=== PATIENT | male | born 1980 | race Caucasian/White ===

== ENCOUNTER 2020-02-23 14:16 | Outpatient (REF) | payer MEDICAID, SELFPAY | END 2020-02-23 14:17 | disposition home or self-care (01) | LOC: HO.LAB 14:16 | PROVIDERS: Visit Provider Internal Medicine | DX: Z20.828 Contact with and (suspected) exposure to other viral communicable diseases (principal) | CPT/HCPCS: C9803; U0003 ==

== ENCOUNTER 2020-09-17 07:30 | Outpatient (REF) | payer OTHER, SELFPAY ==
--- NOTE | ~2020-09-17 | XR_ITS ---
EXAMINATION: XR CERVICAL SPINE CLINICAL INFORMATION: Cervicalgia. COMPARISON: None. TECHNIQUE: 6 views of the cervical spine, inclusive of flexion and extension views, were obtained. FINDINGS: The vertebral alignment is normal. No intrinsic bony abnormality. The disc heights and neural foramina are well maintained. The endplates and posterior elements are normal. No fracture or subluxation. The surrounding prevertebral soft tissues are unremarkable. There is minimal spurring of the joints of [place] seen at the C4-C5 level bilaterally without significant neural foraminal encroachment. XR/XR cervical spine min 6V IMPRESSION: No significant bony cervical spine abnormality appreciated.
--- NOTE | ~2020-09-17 | XR_ITS ---
EXAMINATION: XR ELBOW, RIGHT CLINICAL INFORMATION: Pain COMPARISON: None TECHNIQUE: AP, lateral, and oblique views of the right elbow. FINDINGS: The bones and soft tissues are normal. No fracture or joint effusion. Alignment is anatomic. Joint spaces are maintained. XR/XR elbow RT 2V IMPRESSION: No fracture.
== END 2020-09-17 07:31 | disposition home or self-care (01) ==
LOC: HO.XRAY 07:30
PROVIDERS: PCP Physician Assistant; Visit Provider Physician Assistant
DX: M54.2 Cervicalgia (principal); M25.521 Pain in right elbow
CPT/HCPCS: 72052; 73070

== ENCOUNTER 2020-10-08 07:38 | Outpatient (REF) | payer OTHER, SELFPAY ==
--- NOTE | ~2020-10-08 | XR_ITS ---
EXAMINATION: XR KNEE, LEFT CLINICAL INFORMATION: Pain COMPARISON: None TECHNIQUE: Four views of the left knee. FINDINGS: Bone alignment is normal. There is a lucency seen in the superior medial patella. 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 Differential would include an old fracture. There is a small osteophyte at the lateral patellofemoral joint. The joint spaces are otherwise normal. There is no joint effusion. XR/XR knee LT 3V IMPRESSION: Probable bipartite patella. Differential would include an old fracture. Small osteophyte at the lateral patellofemoral joint.
== END 2020-10-08 07:39 | disposition home or self-care (01) ==
LOC: HO.XRAY 07:38
PROVIDERS: PCP Physician Assistant; Visit Provider Physician Assistant
DX: M25.562 Pain in left knee (principal)
CPT/HCPCS: 73562

== ENCOUNTER 2020-11-10 09:00 | Outpatient (RCR) | payer OTHER, SELFPAY ==
--- NOTE | 2020-10-08 10:46 | MHC.PT.EP ---
[facility] [place] Office [place] Office [place] Office [address] Dameon Carr [address] [phone] F: [phone] F: [phone] F: [phone] F: [phone] Physical Therapy Plan of Care Date of Evaluation: Date of Surgery: Diagnosis: Cervicaliga Assessment: Aron is a 39 y.o. male referred to PT for cervicalalgia . On PT examination he presents with decreased cervical ROM, decreased periscapular strength B. He presents with postural deviations secondary to muscular imbalances that result in compensatory motions. He would benefit from skilled PT for the aforementioned impairments to improve his tolerance for ADLs and work-related tasks including lifting objects over head, lifting heavy things, cooking, cleaning, and driving. He is very motivated for PT. Frequency and Duration: The patient will be seen 2x week for 4 weeks Short Term Goals: 1. In 2 weeks patient will present with increased cervical ROM in all planes to improve his ability for driving and cooking. 2. In 3 weeks patient will demonstrate correct posture and body mechanics for lifting heavy objects off the floor, measured via the teachback method [employer] Goals: 1. In 3 weeks patient will improve periscapualr strength by 1 MMT to help maintain correct posture while lifting objects over head and cleaning. 2. In 4 weeks patient will be independent with HEP for symptom management at home following d/c. Treatment Plan: Modalities to reduce pain, spasms and effusion. Manual therapy to restore motion and function. Therapeutic exercise to improve strength and flexibility. Neuromuscular re-education for posture and balance. Therapeutic activities to return to functional activities of daily living. Electronically signed by: Shoshana Mckeon PT, DPT Please sign and return to therapist. Thank you for your referral.
--- NOTE | 2020-11-23 17:49 | MHC.PT.DC ---
[facility] [place] Office [place] Office [place] Office [address] Dameon Carr [address] [phone] F: [phone] F: [phone] F: [phone] F: [phone] Physical Therapy Discharge Report Diagnosis: Cervicaliga Date of Surgery: Date of Evaluation: 10/08/20 Date of Discharge: 11/23/20 Treatments to Date: 8 Cancellations to Date: 0 No Shows to Date: 0 Discharge Status: Visit Non-compliance Discharge Summary: The patient has not called to schedule any further appointments in two weeks. He is discharged from this physical therapy plan of care. He was reporting a slight improvement in his pain and was demonstrating improved postural awareness. Electronically signed by: Shoshana Mckeon PT, DPT Please sign and return to therapist. Thank you for your referral.
== END 2020-11-23 17:50 | disposition home or self-care (01) ==
LOC: HO.PT 09:00
PROVIDERS: PCP Physician Assistant; Visit Provider Physician Assistant
DX: M54.2 Cervicalgia (principal)
CPT/HCPCS: 97014; 97110; 97112; 97140; 97161; 97530

== ENCOUNTER 2020-12-22 07:23 | Outpatient (REF) | payer OTHER, SELFPAY ==
--- NOTE | ~2020-12-22 | MR_ITS ---
MR CERVICAL SPINE WITHOUT IV CONTRAST CLINICAL INFORMATION: Cervicalgia. COMPARISON: None available. TECHNIQUE: MRI of the cervical spine was obtained using routine sequences without contrast. FINDINGS: Cervical alignment is normal. The vertebral body heights are maintained. There is mild anterior subluxation of C4 on C5. Modic type I endplate signal changes at C4-C5. There is bone marrow edema within the right C4 and C5 facets that is most likely degenerative or inflammatory. No additional bone marrow edema. No acute fractures. The craniocervical junction is unremarkable. Partially imaged intracranial compartment is unremarkable. No cord signal abnormality accounting for artifact. Cervical arterial flow voids are maintained. No significant extraspinal soft tissue findings. C2-C3: Disc contour is normal. No central canal stenosis and no foraminal stenosis. C3-C4: Disc osteophyte without central canal stenosis. Uncovertebral joint spurring and facet arthropathy result in mild right-sided foraminal encroachment. C4-C5: Advanced right-sided uncovertebral joint spurring and facet arthropathy result in severe right-sided foraminal stenosis. No central canal and no left foraminal stenosis. C5-C6: Posterior disc contour normal. No central canal stenosis and no foraminal stenosis. C6-C7: Uncovertebral joint spurring and facet arthropathy result in mild left-sided foraminal encroachment. No central canal stenosis and no right foraminal stenosis. C7-T1: Uncovertebral joint spurring and facet arthropathy result in mild left-sided foraminal encroachment. No central canal and no right foraminal stenosis. MR/MR cervical spine wo con IMPRESSION: - Multilevel cervical spondylosis, greatest at C4-C5 where advanced right-sided uncovertebral joint hypertrophy and hypertrophic facet arthropathy result in severe right-sided foraminal stenosis with suspected compression of the exiting right C5 nerve root. There Modic type I endplate signal changes posteriorly at C4-C5 and there is marrow edema within the right C4 and C5 facets that is most likely degenerative or inflammatory. - Additional mild spondylitic changes throughout the cervical spine as described.
== END 2020-12-22 07:24 | disposition home or self-care (01) ==
LOC: HO.MRI 07:23
PROVIDERS: PCP Physician Assistant; Visit Provider Physician Assistant
DX: M54.12 Radiculopathy, cervical region (principal); M54.2 Cervicalgia
CPT/HCPCS: 72141

== ENCOUNTER 2021-02-23 09:22 | Outpatient (REF) | payer OTHER, SELFPAY ==
[2021-02-23 10:08] LABS: Hematocrit 42.1 % (42.0-52.0); Hemoglobin 13.7 g/dl (14.0-18.0); Mean Corpuscular HGB Conc 32.5 g/dl (31.0-36.0); Mean Corpuscular Hemoglobin 30.2 pg (27.0-33.0); Mean Corpuscular Volume 92.7 fL (80.0-98.0); Mean Platelet Volume 10.7 fL (9.4-12.4); Platelet Count 237 X10*3/uL (160-400); Red Blood Count 4.54 X10*6/uL (4.60-5.80); Red Cell Distribution Width 12.5 % (11.0-16.0); White Blood Count 5.5 X10*3/uL (4.8-10.8)
[2021-02-23 10:14] LABS: Estimated Average Glucose 114 mg/dL; Hemoglobin A1c % 5.6 %
[2021-02-23 10:37] LABS: Alanine Aminotransferase 35 U/L (0-40); Albumin Level 4.4 g/dL (3.5-5.0); Alkaline Phosphatase 43 U/L (39-117); Anion Gap 10 (12-20); Aspartate Amino Transferase 25 U/L (5-37); Bilirubin Total 1.1 mg/dL (0.0-1.0); Blood Urea Nitrogen 16 mg/dL (9-16); Calcium 9.2 mg/dL (8.4-10.2); Carbon Dioxide 27 mmol/L (22-29); Chloride 106 mmol/L (96-108); Cholesterol 154 mg/dL; Estimated Glomerular Filt Rate > 60; Glucose Fasting 109 mg/dL (60-99); HDL Cholesterol 44 mg/dL; LDL Cholesterol Calculated 97 mg/dl; Potassium 4.5 mmol/L (3.3-5.1); Sodium 138 mmol/L (135-145); Total Protein 6.8 g/dL (6.5-8.0); Triglycerides 68 mg/dL
[2021-02-23 10:59] LABS: TSH reflex Free T4 1.38 uIU/mL (0.32-4.0)
== END 2021-02-23 09:23 | disposition home or self-care (01) ==
LOC: HO.LAB 09:22
PROVIDERS: PCP Physician Assistant; Visit Provider Physician Assistant
DX: Z13.29 Encounter for screening for other suspected endocrine disorder (principal); E78.5 Hyperlipidemia, unspecified; I10 Essential (primary) hypertension
CPT/HCPCS: 36415; 80053; 80061; 83036; 84443; 85027

== ENCOUNTER → 2021-11-21 11:27 | Outpatient (BNVA) | payer SELFPAY | PROVIDERS: PCP Physician Assistant; Visit Provider Physician Assistant Medical | DX: Z02.79 Encounter for issue of other medical certificate (principal) ==

== ENCOUNTER 2022-04-29 12:55 | Outpatient (REF) | payer BC, OTHER, SELFPAY ==
--- NOTE | ~2022-04-29 | XR_ITS ---
EXAMINATION: XR NASAL BONES CLINICAL INFORMATION: Injury. COMPARISON: None TECHNIQUE: 3 views of the nasal bones were obtained. FINDINGS: There are no fractures or dislocations. No bone, joint or soft tissue abnormality is demonstrated. XR/XR nasal bones min 3V IMPRESSION: Unremarkable examination.
== END 2022-04-29 12:56 | disposition home or self-care (01) ==
LOC: HO.HMGCX 12:55
PROVIDERS: PCP Physician Assistant; Visit Provider Nurse Practitioner Acute Care
DX: S09.92XA Unspecified injury of nose, initial encounter (principal)
CPT/HCPCS: 70160

== ENCOUNTER 2023-04-10 07:51 | Outpatient (AMB) | payer OTHER, SELFPAY ==
[2023-04-10 07:56] VITALS: BP 116/62; PULSE 40; O2SAT 98; BMI 27.7
--- NOTE | 2023-04-10 07:56 | MHC.PC.OV ---
Vital Signs 04/10/23 07:56 Height 5 ft 10 in Weight 193 lb BMI 27.7 BP 116/62 Blood Pressure Location Lt brachial Position Sitting Pulse 40 L Pulse Source Pulse Oximeter Pulse Oximetry (%) 98 Oxygen Delivery Method Room Air Intake Visit Reasons: Annual Exam Intake Note: Went to urgent care due to fall on right shoulder. Has a lot of pain and discomfort still. Allergies No Known Allergies Allergy (Verified 04/10/23 07:57) Tobacco use date assessed: 04/10/23 Dental Screening Dental Screen Date: 04/10/23 Did you have a dental visit in the last 12 months?: Yes Did you have a dental problem in the last 6 months where you did not have access to dental care?: No Was dental information given to patient?: Patient has dentist HPI Annual Exam HPI Details Patient is a 42-year-old male here today for routine annual physical. Patient has a past medical history significant lumbar disc disease, cervical spine disc disease, hyperlipidemia continues on statin therapy. Does have a family history of Heart disease. Otherwise Patient is fairly healthy Reports he injured his right shoulder in December of 2022. Was evaluated urgent care and x-rays taking without any significant findings. He reports he gradually felt his shoulder was getting better though recently when bowling and now feeling inflammation and pain/ decreased range of motion in his right shoulder. .. Hyperlipidemia: Most recent labs done at [facility] showing appropriate total cholesterol and LDL. Vaccine: UTD with Tdap, UTD with COVID vaccine, up-to-date with flu vaccine [facility] Surgical History History of microdiscectomy Family History Mother Heart disease Hyperthyroidism Father Diabetes Brother Substance use disorder Heart disease Social History Housing: House Alcohol intake: current Alcohol intake frequency: holidays/special occasions only Alcohol type: beer Patient Tobacco Use Status: Former Tobacco user (smoked in breif[place]. 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 1. Little interest or pleasure in doing things: not at all 2. Feeling down, depressed, or hopeless: not at all 3. Trouble falling or staying asleep, or sleeping too much: not at all 4. Feeling tired or having little energy: not at all 5. Poor appetite or overeating: not at all 6. Feeling bad about yourself - or that you are a failure or have let yourself or your family down: not at all 7. Trouble concentrating on things, such as reading the newspaper or watching television: not at all 8. Moving or speaking so slowly that other people could have noticed. Or the opposite - being so fidgety or restless that you have been moving around a lot more than usual: not at all 9. Thoughts that you would be better off or of hurting yourself in some way: not at all Total score: 0 Depression Screening Interpretation: Negative Depression Screening Done: Yes 50995 - PHQ-9 Billing: Yes Source: Developed by Drs. Gordy Alcantar, Kezia Schmitz, Prateek Chavira and colleagues, with an educational rose from [employer]. Thrive Questionnaire Date Thrive assessed: 04/10/23 I am a: Patient What is your living situation today?: I have a steady place to live Within the past 12 months, did the food you bought not last and you didn't have the money to get more?: Never true Within the past 12 months, did you worry whether your food would run out before you got money to buy more?: Never true Do you have trouble paying for medicines?: No Do you have trouble getting transportation to medical appointments?: No Do you have trouble paying your heating and electricity bill?: No Do you have trouble taking care of your child, family member or friend?: No Do you have trouble with day-to-day activities such as bathing, preparing meals, shopping, managing finances, etc.?: No Are you currently unemployed and looking for a job?: No Are you interested in more education?: No Currently or been in a relationship where the following occur: no concerns reported AUDIT C Alcohol Use Questionnaire (AUDIT-C) 1. How often do you have a drink containing alcohol?: Monthly or less 2. How many drinks containing alcohol do you have on a typical day when you are drinking?: 3 or 4 3. How often do you have six or more drinks on one occasion?: Less than monthly Total Score: 3 AKSHAT-7 AMB Questionnaire AKSHAT-7 Date AKSHAT - 7 assessed: 04/10/23 Feeling nervous, anxious, or on edge: 0 = Not at all Not being able to stop or control worryin = Not at all Worrying too much about different things: 0 = Not at all Trouble relaxin = Not at all Being so restless that it is hard to sit still: 0 = Not at all Becoming easily annoyed or irritable: 0 = Not at all Feeling afraid as if something awful might happen: 0 = Not at all Total AKSHAT-7 score (0-4 normal; 5-9 mild; 10-14 moderate; 15-21 severe): 0 Source: Developed by Drs. Gordy Alcantar, Kezia Schmitz, Prateek Chavira and colleagues, with an educational rose from [employer]. AKSHAT-7 Assessment Billing AKSHAT-7 Assessment Tool: AKSHAT-7 Assessment 25279 Review of Systems Const Denies body aches, Denies chills, Denies excessive sweating, Denies fatigue, Denies fever(s) and Denies headache(s) Eyes Denies blurry vision ENT Denies dysphagia, Denies vertigo, Denies dizziness, Denies headache(s), Denies hearing loss and Denies tinnitus Card Denies chest pain, Denies chest pain with activity, Denies syncope, Denies irregular heart rhythm and Denies dyspnea Resp Denies chest congestion, Denies cough, Denies hemoptysis, Denies dyspnea and Denies wheezing GI Denies abdominal pain, Denies melena, Denies hematochezia, Denies coffee ground emesis, Denies dysphagia, Denies diarrhea, Denies nausea and Denies vomiting Denies difficulty urinating, Denies dysuria, Denies urinary frequency, Denies urinary hesitancy and Denies urinary urgency Musc Denies arthralgias, Denies limited range of motion, Denies muscle cramps and Denies muscle weakness Skin/Breast Denies rash and Denies skin ulcer Neuro Denies Abnormal speech present, Denies confusion, Denies vertigo, Denies dizziness, Denies syncope, Denies headache(s), Denies memory loss and Denies seizure-like activity Psych Denies anxiety, Denies confusion, Denies depression, Denies memory loss, Denies panic attacks and Denies paranoia Endo Denies excessive sweating, Denies fatigue, Denies flushing, Denies polydipsia and Denies polyuria Aller/Immun Denies wheezing Physical exam (Primary Care) Vital Signs: Last Vital Signs Pulse 40 L 04/10/23 07:56 BP 116/62 04/10/23 07:56 Pulse Ox 98 04/10/23 07:56 Oxygen Delivery Method Room Air 04/10/23 07:56 BMI result Body Mass Index 27.7 Tobacco/Smoking Status: Tobacco use Status Tobacco use date assessed 04/10/23 04/10/23 08:03 Patient Tobacco Use Status Former Tobacco user (smoked 04/10/23 08:19 in [facility]. < 1 year.) Tobacco use type Cigarette 04/10/23 08:19 e-Cigarette/Vaping Use Never Used 04/10/23 08:19 PHQ-9: PHQ-9 Score PHQ-9: Total score 0 04/10/23 08:17 Depression Screening Interpretation: Negative Thrive Assessment: Date of Thrive Assessment Date Thrive assessed 04/10/23 04/10/23 08:03 Currently or been in a relationship where the following occur: no concerns reported Const General: cooperative, comfortable, no acute distress, alert and awake; No confusion Orientation/consciousness: oriented to person, oriented to place, patient oriented x3 and No confusion HENMT Head: Yes normocephalic Ears: external ears normal and TM's normal bilaterally Face and sinus: No sinus tenderness Mouth: Normal oral and palatal mucosa present and tongue normal Teeth and gingiva: dentition normal and gingiva normal Throat: Yes posterior oropharynx normal, Yes tonsils normal and Yes uvula midline Eyes Conjunctivae: conjunctivae normal Sclerae: sclerae normal Pupils: Equal, round and reactive pupils present EOM: EOMs intact bilaterally Direct Ophthalmoscopy: No no photophobia Neck Neck: Yes no lymphadenopathy, No tender and Yes no JVD Thyroid: Thyroid normal Carotids: no bruits Chest Chest palpation & inspection: no tenderness Resp Effort & Inspection: normal respiratory effort, no audible wheezes, not labored and no stridor Auscultation: no crackles, no rales, no rhonchi and no wheezes Cardio Jugular venous distension: no JVD Rate: regular rate, not bradycardic and not tachycardic Rhythm: regular rhythm Bruits: no carotid bruits Peripheral pulses: Peripheral pulses 2+ throughout GI Inspection: Yes normal to inspection, No abdominal wall ecchymosis and No visible herniation Palpation (GI): Soft to palpation, nontender, no guarding, not rigid and No hepatosplenomegaly present Auscultation: normoactive bowel sounds General: Yes no CVA tenderness Back/Spine/Pelvis Back: no CVA tenderness and No back tenderness Cervical Spine: cervical ROM normal Thoracic/Lumbar Spine: thoracic and lumbar spine normal to inspection, straight leg raise negative bilaterally, No thoraco-lumbar ROM limited and No lumbar spinal tenderness Skin Lesions: no lesions Rashes: no rashes Wounds: no wounds Neuro General: oriented to person, oriented to place, patient oriented x3, CN's II-XI intact bilaterally and No confusion Cranial nerves: Yes Equal, round and reactive pupils present and Yes Normal accommodation reflex present Cognition (Neuro): normal cognition Speech: No Abnormal speech present Gait exam (Neuro): Normal gait present Motor exam (neuro): 5/5 motor strength present throughout Extrem Other: Right shoulder: Limited range of motion, pain reported with extension and internal rotation. Right upper extremity: full ROM; no cyanosis Left upper extremity: full ROM; no cyanosis Right lower extremity: no edema Left lower extremity: no edema Psych Appearance: grossly normal Mental Status: mental status grossly normal Affect: normal affect Attitude: cooperative Thought process: Normal thought process present Assessment and Plan Assessment & Plan (1) Annual physical exam: Code(s): Z00.00 - Encounter for general adult medical examination without abnormal findings (2) HLD (hyperlipidemia): Code(s): E78.5 - Hyperlipidemia, unspecified Qualifiers: Hyperlipidemia type: mixed hyperlipidemia Qualified Code(s): E78.2 - Mixed hyperlipidemia Plan: Patient's most recent fasting lipid panel showing appropriate total cholesterol 193 and well controlled LDL. Will continue on statin therapy with goal LDL to remain below 130. (3) Tendinopathy of right shoulder: Code(s): M67.911 - Unspecified disorder of synovium and tendon, right shoulder Plan: As per HPI, injured his shoulder December 2022. Has made progress though re-injured his right shoulder while bowling. Reports some decreased range of motion and pain in the anterior aspect of his shoulder. Will likely benefit from physical therapy. Orders: Orders Lipid Panel Today E78.2 - Mixed hyperlipidemia Complete Blood Count no Diff Today E78.2 - Mixed hyperlipidemia Comprehensive [place]. Panel Fast Today E78.2 - Mixed hyperlipidemia PT Evaluation and Treatment Today M67.911 - Unspecified disorder of synovium and tendon, right shoulder Referrals Orthopedics Referral M67.911 - Unspecified disorder of synovium and tendon, right shoulder Medications: Refilled atorvastatin 40 mg PO DAILY 90 days 90 tabs 2RF E78.5 - Hyperlipidemia, unspecified atorvastatin 40 mg PO DAILY 90 days 90 tabs 2RF E78.5 - Hyperlipidemia, unspecified Coding Level of Care Code Est Pt Prev Care 40-64y(93185) Diagnoses Annual physical exam Z00.00 Mixed hyperlipidemia E78.2 Hyperlipidemia type: mixed hyperlipidemia Tendinopathy of right shoulder M67.911 Additional Codes AKSHAT-7 Assessment Billing - AKSHAT-7 Assessment Tool: AKSHAT-7 Assessment 71196 ([id number])
== END 2023-04-10 08:35 | disposition home or self-care (01) ==
PROVIDERS: Visit Provider Physician Assistant
DX: Z00.00 Encounter for general adult medical examination without abnormal findings (principal); M67.911 Unspecified disorder of synovium and tendon, right shoulder; Z82.49 Family history of ischemic heart disease and other diseases of the circulatory system; Z79.899 Other long term (current) drug therapy
CPT/HCPCS: 99396

== ENCOUNTER 2023-04-12 10:26 | Outpatient (AMB) | payer OTHER, SELFPAY ==
--- NOTE | 2023-04-12 10:31 | MHC.OFFVIS ---
Intake Intake Visit Reasons: [employer]PER- Rt shoulder disorder tendon Intake Note: Aron is a 42 yr old male, fell on right shoulder while doing a handstand in December and has been having pain, pain subsided and then went bowling and has been having pain since March. Having issues lifting and has tried to rest his shoulder but he has a 3 yr old at home that he needs to care for. He reports mild weakness when lifting his right hand above shoulder height. He did have an MRI of his cervical spine in December of 2000 which showed foraminal stenosis at level C5-C6. He had an injection given into his neck at that time which gave him fairly good relief. He reports mild to moderate discomfort in his neck as well. Allergies No Known Allergies Allergy (Verified 04/12/23 10:35) Medication List - Last Reconciled 04/12/23 by Brian Kirk MD atorvastatin 40 mg PO DAILY 90 days ibuprofen 400 mg PO Q8H methylprednisolone (Medrol (Js)) PO PER PKG DIR PFSH Surgical History History of microdiscectomy Family History Mother Heart disease Hyperthyroidism Father Diabetes Brother Substance use disorder Heart disease Social History Housing: House Alcohol intake: current Alcohol intake frequency: holidays/special occasions only Alcohol type: beer Patient Tobacco Use Status: Former Tobacco user (smoked in [place]. 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 Cognitive needs: No Hearing needs: No Vision needs: No Physical Exam Const Other: Well-nourished well-developed very friendly male awake alert and oriented x3 in no acute distress Extrem Other: Bilateral upper extremity examination shows good capillary refill, no skin lesions noted, normal sensation light touch Right shoulder examination shows slightly decreased range of motion when compared to his left shoulder, 4+ out of 5 strength with supraspinatus testing, positive impingement signs, no instability Results Reviewed Results Reviewed: X-rays of the patient's right shoulder show moderate acromioclavicular joint narrowing, a type 2 acromion, no acute bony abnormalities Assessment & Plan Assessment & Plan (1) Right shoulder pain: Code(s): M25.511 - Pain in right shoulder Plan Mr. Hannon presents with right shoulder pain most likely due to impingement syndrome and rotator cuff tendinosis. He also has intermittent neck pain due to foraminal stenosis at level C5-C6 based on his MRI in 2020. I had a lengthy discussion with the patient regarding the treatment options. We will hold off on a cortisone injection at this time. I did give the patient a prescription for a Medrol Dosepak. I will see him back in 4-6 weeks time for repeat clinical examination. He will continue with his range of motion exercises in the meantime. Feel free to call me at any time should questions regarding his orthopedic management arise. Thank you very much for asking me to see this very friendly gentleman. I spent 22 minutes in reviewing the patient's records and imaging studies, seeing the patient and documenting in the medical record. Orders: Orders XR shoulder RT min 2V Today M25.511 - Pain in right shoulder Medications: New methylprednisolone (Medrol (Js)) PO PER PKG DIR 21 ea 0RF Coding Level of Care Code New Pt Level 2 (57382) Diagnoses Right shoulder pain M25.511
== END 2023-04-12 11:00 | disposition home or self-care (01) ==
PROVIDERS: PCP Physician Assistant; Visit Provider Orthopaedic Surgery
DX: M25.511 Pain in right shoulder (principal)
CPT/HCPCS: 99202

== ENCOUNTER 2023-04-12 11:18 | Outpatient (REF) | payer OTHER, SELFPAY ==
--- NOTE | ~2023-04-12 | XR_ITS ---
EXAMINATION: XR SHOULDER, RIGHT CLINICAL INFORMATION: Pain in right shoulder. COMPARISON: None available. TECHNIQUE: Two views of the right shoulder. FINDINGS: Acromioclavicular and glenohumeral alignment preserved. No abnormal soft tissue calcification identified adjacent to the humeral head. Minimal hypertrophic change at the acromioclavicular joint. XR/XR shoulder RT min 2V IMPRESSION: Minimal hypertrophic change at the acromioclavicular joint. Correlation with clinical exam recommended to determine further management. If there is concern for fracture or other underlying pathology, MRI could be obtained for further evaluation.
== END 2023-04-12 11:19 | disposition home or self-care (01) ==
LOC: HO.HOSX 11:18
PROVIDERS: Visit Provider Orthopaedic Surgery
DX: M25.511 Pain in right shoulder (principal); M67.911 Unspecified disorder of synovium and tendon, right shoulder; Z79.899 Other long term (current) drug therapy
CPT/HCPCS: 73030

== ENCOUNTER 2023-06-05 10:00 | Outpatient (RCR) | payer OTHER, SELFPAY ==
--- NOTE | 2023-05-01 14:39 | MHC.PT.EP ---
[facility] [place] Office [place] Office [place] Office [address] Dameon Carr [address] [phone] F: [phone] F: [phone] F: [phone] F: [phone] Physical Therapy Plan of Care Date of Evaluation: 05/01/23 Date of Surgery: N/A Diagnosis: Tendinopathy R shoulder Assessment: Pt is a 42yo male who presents to PT with > 4 month h/o R shoulder pain. Pt referred to PT with diagnosis of tendinopathy, XR shows hypertrophic changes at AC joint. Skilled PT indicated to reduce pain and inflammation, improved cervicothoracic posture and scap stability to normalize scapulohumeral rhythm, reduce impingement of AC joint, and help pt return to PLOF. Pt is in agreement with POC and is motivated to participate. Frequency and Duration: The patient will be seen 2x/week, x 4 weeks Short Term Goals: 1. In 2 weeks, patient will be able to stand with neutral cervical and thoracic spine during UE exercises, no V/C's needed. 2. In 2 weeks, pt will report reduced pain R shoulder to <=4/10 during work tasks. 3. In 2 weeks, pt will be I with postural correction ex including chin tucks and thoracic/periscap strengthening phase 1 exercises. Group Home Goals: 1. In 4 weeks, patient will report 0/10 pain when helping his son get in and out of carseat. 2. In 4 weeks, patient will have full IR ROM without compensatory movements. 3. In 4 weeks, patient will demonstrate 5/5 periscap and shoulder strength all planes to ensure good stability of shoulder. Treatment Plan: Modalities to reduce pain, spasms and effusion. Manual therapy to restore motion and function. Therapeutic exercise to improve strength and flexibility. Neuromuscular re-education for posture and balance. Therapeutic activities to return to functional activities of daily living. Electronically signed by: Fatmata Mcfarlane PT, DPT Please sign and return to therapist. Thank you for your referral.
--- NOTE | 2023-11-07 11:49 | MHC.PT.DC ---
[facility] [place] Office [place] Office [place] Office [address] Dameon Carr [address] [phone] F: [phone] F: [phone] F: [phone] F: [phone] Physical Therapy Discharge Report Diagnosis: Tendinopathy R shoulder Date of Surgery: N/A Date of Evaluation: 05/01/23 Date of Discharge: 06/05/23 Treatments to Date: 9 Cancellations to Date: No Shows to Date: Discharge Status: Achieved Goals Improved Function Independent with HEP Discharge Summary: Pt was referred to PT for R shoulder tendinopathy, and participated in 9 treatment sessions. Pt has met all goals in POC. Pt in agreement with D/C on this date. SPADI improved to 14/130, compared to 46/130 on initial eval. Pt with overall improved body mechanics and periscap strength, with good ability to manage symptoms at home with CP, and stretching. Electronically signed by: Fatmata Mcfarlane PT, DPT Please sign and return to therapist. Thank you for your referral.
== END 2023-11-07 11:49 | disposition home or self-care (01) ==
LOC: HO.PT 10:00
PROVIDERS: PCP Physician Assistant; Visit Provider Physician Assistant
DX: M67.911 Unspecified disorder of synovium and tendon, right shoulder (principal)
CPT/HCPCS: 97110; 97140; 97161; 97530

== ENCOUNTER 2023-06-26 08:46 | Outpatient (AMB) | payer SELFPAY ==
[2023-06-26 09:04] VITALS: BMI 27.7
--- NOTE | 2023-06-26 09:04 | MHC.OFFVIS ---
Intake Vital Signs 06/26/23 09:04 Height 5 ft 10 in Weight 193 lb BMI 27.7 Intake Visit Reasons: Right Shoulder follow up Intake Note: Aron is a 42 year old 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 male who presents with Right shoulder pain. Patient reports he did physical therapy and it does feel better. He is still having some clicking and pain when raising his hands over head or throwing a ball with his son. The patient states that he does do quite a bit of overhead lifting at work. Allergies No Known Allergies Allergy (Verified 06/26/23 09:08) Medication List - Last Reconciled 06/26/23 by Brian Kirk MD atorvastatin 40 mg PO DAILY 90 days ibuprofen 400 mg PO Q8H methylprednisolone (Medrol (Js)) PO [facility] History History of microdiscectomy Family History Mother Heart disease Hyperthyroidism Father Diabetes Brother Substance use disorder Heart disease Social History (Updated 06/26/23 @ 09:09 by Aicha Stockton CMA) Housing: House Alcohol intake: current Alcohol intake frequency: holidays/special occasions only Alcohol type: beer Patient Tobacco Use Status: Former Tobacco user (smoked in breifly. 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 Hannon presents for follow-up of his right shoulder pain due to impingement syndrome. I had a lengthy discussion with the patient regarding the treatment options. At this point the patient's symptoms are tolerable to him. We will hold off on a cortisone injection or an MRI. He will continue with his activity modifications. He will follow up with me on an as-needed basis should his symptoms worsen in any way. Feel free to call me at any time should questions regarding his orthopedic management arise. I spent 19 minutes in reviewing the patient's records and imaging studies, seeing the patient and documenting in the medical record. Coding Level of Care Code Est Pt Level 2 (68514) Diagnoses Impingement of right shoulder M25.811
== END 2023-06-26 09:24 | disposition home or self-care (01) ==
PROVIDERS: PCP Physician Assistant; Visit Provider Orthopaedic Surgery
DX: M25.811 Other specified joint disorders, right shoulder (principal)
CPT/HCPCS: 99212

== ENCOUNTER → 2023-06-26 08:46 | Outpatient (BNVA) | payer OTHER, SELFPAY | PROVIDERS: PCP Physician Assistant; Visit Provider Orthopaedic Surgery | DX: M25.511 Pain in right shoulder (principal); M25.811 Other specified joint disorders, right shoulder | CPT/HCPCS: 99212 ==

== ENCOUNTER → 2023-11-22 07:32 | Outpatient (BNVA) | payer SELFPAY | PROVIDERS: PCP Physician Assistant; Visit Provider Physician Assistant Medical | DX: Z02.79 Encounter for issue of other medical certificate (principal) ==

== ENCOUNTER 2024-04-14 08:03 | Outpatient (AMB) | payer BC, SELFPAY ==
--- NOTE | 2024-04-14 08:09 | A.OFFPC_ITS ---
Vital Signs 04/14/24 08:15 Height 5 ft 10 in Weight 201 lb BMI 28.8 BP 110/62 Blood Pressure Location Lt brachial Position Sitting Pulse 49 L Pulse Source Pulse Oximeter Pulse Oximetry (%) 98 Oxygen Delivery Method Room Air Intake Visit Reasons: Annual Exam Allergies No Known Allergies Allergy (Verified 04/14/24 08:22) Medication List - Last Reconciled 04/14/24 by Lio Price PA-C atorvastatin 40 mg PO DAILY 90 days ibuprofen 400 mg PO Q8H Tobacco use date assessed: 04/10/23 Dental Screening Dental Screen Date: 04/10/23 HPI Annual Exam HPI Details Patient is a 43-year-old male here today for routine annual physical. Patient has a past medical history significant lumbar disc disease, cervical spine disc disease, hyperlipidemia continues on statin therapy. Does have a family history of Heart disease. Otherwise Patient is fairly healthy .. Concerns--> he reports some concerned about his bradycardia. He did call in in January of 2023 about having low heart rates in the 40s during sleep. Does have a seemingly asymptomatic course or bradycardia. Has upcoming appointment in May with Cardiology. Again otherwise he is asymptomatic without any dizziness, presyncopal episodes or fatigue. .. Hyperlipidemia: Most recent labs done at [facility] showing borderline high cholesterol and LDL. Vaccine: UTD with Tdap, UTD with COVID vaccine, Need flu vaccine [facility] Medical History (Updated 04/15/24 @ 08:18 by Lio Price PA-C) Impingement of right shoulder Cervical radiculopathy at C5 Surgical History History of microdiscectomy Family History (Updated 04/15/24 @ 08:15 by Lio Price PA-C) Mother Heart disease Hyperthyroidism Father Diabetes Coronary artery disease involving coronary bypass graft Brother Substance use disorder Heart disease Social History Housing: House Alcohol intake: current Alcohol intake frequency: holidays/special occasions only Alcohol type: beer Patient Tobacco Use Status: Former Tobacco user Tobacco use type: Cigarette e-Cigarette/Vaping Use: Never Used Second Hand Smoke Exposure: No Current occupational status: employed 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 1. Little interest or pleasure in doing things: not at all 2. Feeling down, depressed, or hopeless: not at all 3. Trouble falling or staying asleep, or sleeping too much: not at all 4. Feeling tired or having little energy: not at all 5. Poor appetite or overeating: not at all 6. Feeling bad about yourself - or that you are a failure or have let yourself o r your family down: not at all 7. Trouble concentrating on things, such as reading the newspaper or watching television: not at all 8. Moving or speaking so slowly that other people could have noticed. Or the opposite - being so fidgety or restless that you have been moving around a lot more than usual: not at all 9. Thoughts that you would be better off or of hurting yourself in some way: not at all Total score: 0 Depression Screening Interpretation: Negative Depression Screening Done: Yes 90012 - PHQ-9 Billing: Yes Source: Developed by Drs. Gordy Alcantar, Kezia Schmitz, Prateek roberts nd colleagues, with an educational rose from [employer].. Thrive Questionnaire Date Thrive assessed: 04/14/24 I am a: Patient What is your living situation today?: I have a steady place to live Within the past 12 months, did the food you bought not last and you didn't have the money to get more?: Never true Within the past 12 months, did you worry whether your food would run out before you got money to buy more?: Never true Do you have trouble paying for medicines?: No Do you have trouble getting transportation to medical appointments?: No Do you have trouble paying your heating and electricity bill?: No Do you have trouble taking care of your child, family member or friend?: No Do you have trouble with day-to-day activities such as bathing, preparing meals, shopping, managing finances, etc.?: No Are you currently unemployed and looking for a job?: No Are you interested in more education?: No Please select the resources that you would like help with: None Currently or been in a relationship where the following occur: No concerns reported THRIVE Score: 0 AUDIT C Alcohol Use Questionnaire (AUDIT-C) 1. How often do you have a drink containing alcohol?: Monthly or less 2. How many drinks containing alcohol do you have on a typical day when you are drinking?: 3 or 4 3. How often do you have six or more drinks on one occasion?: Less than monthly Total Score: 3 AKSHAT-7 AMB Questionnaire AKSHAT-7 Date AKSHAT - 7 assessed: 04/14/24 Feeling nervous, anxious, or on edge: 2 = More than half the days Not being able to stop or control worryin = Several days Worrying too much about different things: 1 = Several days Trouble relaxin = Several days Being so restless that it is hard to sit still: 0 = Not at all Becoming easily annoyed or irritable: 0 = Not at all Feeling afraid as if something awful might happen: 0 = Not at all Total AKSHAT-7 score (0-4 normal; 5-9 mild; 10-14 moderate; 15-21 severe): 5 Source: Developed by Drs. Gordy Alcantar, Kezia Schmitz, Prateek Chavira and colleagues, with an educational rose from [employer].. AKSHAT-7 Assessment Billing AKSHAT-7 Assessment Tool: AKSHAT-7 Assessment 59844 Review of Systems Const Denies body aches, Denies chills, Denies excessive sweating, Denies fatigue, Denies fever(s) and Denies headache(s) Eyes Denies blurry vision ENT Denies dysphagia, Denies vertigo, Denies dizziness, Denies headache(s), Denies hearing loss and Denies tinnitus Card Denies chest pain, Denies chest pain with activity, Denies syncope, Denies irregular heart rhythm and Denies dyspnea Resp Denies chest congestion, Denies cough, Denies hemoptysis, Denies dyspnea and Denies wheezing GI Denies abdominal pain, Denies melena, Denies hematochezia, Denies coffee ground emesis, Denies dysphagia, Denies diarrhea, Denies nausea and Denies vomiting Denies difficulty urinating, Denies dysuria, Denies urinary frequency, Denies urinary hesitancy and Denies urinary urgency Musc Denies arthralgias, Denies limited range of motion, Denies muscle cramps and Denies muscle weakness Skin/Breast Denies rash and Denies skin ulcer Neuro Denies Abnormal speech present, Denies confusion, Denies vertigo, Denies dizziness, Denies syncope, Denies headache(s), Denies memory loss and Denies seizure-like activity Psych Denies anxiety, Denies confusion, Denies depression, Denies memory loss, Denies panic attacks and Denies paranoia Endo Denies excessive sweating, Denies fatigue, Denies flushing, Denies polydipsia and Denies polyuria Aller/Immun Denies wheezing Physical exam (Primary Care) Vital Signs: Last Vital Signs Pulse 49 L 04/14/24 08:15 BP 110/62 04/14/24 08:15 Pulse Ox 98 04/14/24 08:15 Oxygen Delivery Method Room Air 04/14/24 08:15 BMI result Body Mass Index 28.8 Tobacco/Smoking Status: Tobacco use Status Tobacco use date assessed 04/10/23 04/14/24 08:10 Patient Tobacco Use Status Former Tobacco user 04/14/24 08:10 Tobacco use type Cigarette 04/14/24 08:10 e-Cigarette/Vaping Use Never Used 04/14/24 08:10 PHQ-9: PHQ-9 Score PHQ-9: Total score 0 04/14/24 08:43 Depression Screening Interpretation: Negative Thrive Assessment: Date of Thrive Assessment Date Thrive assessed 04/14/24 04/14/24 08:19 Currently or been in a relationship where the following occur: No concerns reported Const General: cooperative, comfortable, no acute distress, alert and awake; No confusion Orientation/consciousness: oriented to person, oriented to place, patient oriented x3 and No confusion HENMT Head: Yes normocephalic Ears: external ears normal and TM's normal bilaterally Face and sinus: No sinus tenderness Mouth: Normal oral and palatal mucosa present and tongue normal Teeth and gingiva: dentition normal and gingiva normal Throat: Yes posterior oropharynx normal, Yes tonsils normal and Yes uvula midline Eyes Conjunctivae: conjunctivae normal Sclerae: sclerae normal Pupils: Equal, round and reactive pupils present EOM: EOMs intact bilaterally Direct Ophthalmoscopy: No no photophobia Neck Neck: Yes no lymphadenopathy, No tender and Yes no JVD Thyroid: Thyroid normal Carotids: no bruits Chest Chest palpation & inspection: no tenderness Resp Effort & Inspection: normal respiratory effort, no audible wheezes, not labored and no stridor Auscultation: no crackles, no rales, no rhonchi and no wheezes Cardio Jugular venous distension: no JVD Rate: regular rate, not bradycardic and not tachycardic Rhythm: regular rhythm Bruits: no carotid bruits Peripheral pulses: Peripheral pulses 2+ throughout GI Inspection: Yes normal to inspection, No abdominal wall ecchymosis and No visible herniation Palpation (GI): Soft to palpation, nontender, no guarding, not rigid and No hepatosplenomegaly present Auscultation: normoactive bowel sounds General: Yes no CVA tenderness Back/Spine/Pelvis Back: no CVA tenderness and No back tenderness Cervical Spine: cervical ROM normal Thoracic/Lumbar Spine: thoracic and lumbar spine normal to inspection, straight leg raise negative bilaterally, No thoraco-lumbar ROM limited and No lumbar spinal tenderness Skin Lesions: no lesions Rashes: no rashes Wounds: no wounds Neuro General: oriented to person, oriented to place, patient oriented x3, CN's II-XI intact bilaterally and No confusion Cranial nerves: Yes Equal, round and reactive pupils present and Yes Normal accommodation reflex present Cognition (Neuro): normal cognition Speech: No Abnormal speech present Gait exam (Neuro): Normal gait present Motor exam (neuro): 5/5 motor strength present throughout Extrem Right upper extremity: full ROM; no cyanosis Left upper extremity: full ROM; no cyanosis Right lower extremity: no edema Left lower extremity: no edema Psych Appearance: grossly normal Mental Status: mental status grossly normal Affect: normal affect Attitude: cooperative Thought process: Normal thought process present Office Procedures Flu Questionnaire Does the patient have a severe egg allergy?: No Does the patient have severe life threatening allergies?: No Does the patient have a fever or illness today?: No Has the patient ever had Guillain-[place] Syndrome?: No Has the patient ever had any past reaction to a flu shot?: No Immunizations Fluarix Triv [id number] (PF) 45 mcg (15 mcg x 3)/0.5 mL IM syringe Performing Provider: Lio Price PA-C Performing Location: [facility] Administered by: ROSALBA Brambila on 04/14/24 08:43 Dose Route Admin Location Dispensed Lot Number Expiration Date [employer] Maintainer 0.5 mL IM Left Deltoid 0.5 mL [id number] 10/06/24 [id number] [employer] VIS Given Date VIS Provided VIS Publication Date 04/14/24 Single Vaccine 20 Eligibility Eligibility Date Funding Source Not VFC Eligible 04/14/24 Private Coding Level of Care Code Est Pt Prev Care 40-64y(85578) Diagnoses Annual physical exam Z00.00 Mixed hyperlipidemia E78.2 Hyperlipidemia type: mixed hyperlipidemia Screening for diabetes mellitus (DM) Z13.1 Bradycardia R00.1 AKSHAT (generalized anxiety disorder) F41.1 Additional Codes PHQ-9 - 00772 - PHQ-9 Billing: Yes ([id number]) AKSHAT-7 Assessment Billing - AKSHAT-7 Assessment Tool: AKSHAT-7 Assessment 71039 ([id number]) Assessment & Plan Assessment & Plan (1) Annual physical exam: Code(s): Z00.00 - Encounter for general adult medical examination without abnormal findings Category: Medical Plan: As per HPI (2) HLD (hyperlipidemia): Code(s): E78.5 - Hyperlipidemia, unspecified Category: Medical Qualifiers: Hyperlipidemia type: mixed hyperlipidemia Qualified Code(s): E78.2 - Mixed hyperlipidemia Plan: Most recent lipid panel showing borderline high cholesterol and LDL. He does admit during that time he was in consistent with the use of his statin therapy. Will recheck lipid panel with more consistent use of a statin therapy. Goal LDL to be below 130. Of note does have family history of coronary artery disease (3) Screening for diabetes mellitus (DM): Code(s): Z13.1 - Encounter for screening for diabetes mellitus Category: Medical Plan: As per HPI (4) Bradycardia: Code(s): R00.1 - Bradycardia, unspecified Category: Medical Plan: As per HPI, patient will be following up with a ferryboat ticket taker about his bradycardia. He is otherwise asymptomatic (5) AKSHAT (generalized anxiety disorder): Code(s): F41.1 - Generalized anxiety disorder Category: Medical Plan: Patient's AKSHAT-7 score positive for mild anxiety which has been existing condition for him. Not interested in speaking with a mental health therapist or starting medication at this time. Orders: Orders Comprehensive [place]. Panel Fast 04/14/24 E78.2 - Mixed hyperlipidemia Influenza [id number] Immunization 04/14/24 Z23 - Encounter for immunization Lipid Panel 04/14/24 E78.2 - Mixed hyperlipidemia Complete Blood Count no Diff 04/14/24 E78.2 - Mixed hyperlipidemia
[2024-04-14 08:15] VITALS: BP 110/62; PULSE 49; O2SAT 98; BMI 28.8
== END 2024-04-14 08:47 | disposition home or self-care (01) ==
PROVIDERS: PCP Physician Assistant; Visit Provider Physician Assistant
DX: Z00.00 Encounter for general adult medical examination without abnormal findings (principal); E78.2 Mixed hyperlipidemia; Z13.1 Encounter for screening for diabetes mellitus; R00.1 Bradycardia, unspecified; F41.1 Generalized anxiety disorder

== ENCOUNTER → 2024-04-14 08:03 | Outpatient (BNVA) | payer BC, SELFPAY | PROVIDERS: PCP Physician Assistant; Visit Provider Physician Assistant | DX: Z00.00 Encounter for general adult medical examination without abnormal findings (principal); Z23 Encounter for immunization; E78.2 Mixed hyperlipidemia; R00.1 Bradycardia, unspecified; F41.1 Generalized anxiety disorder | CPT/HCPCS: 90471; 90656; 96127 ==

== ENCOUNTER → 2024-05-19 07:53 | Outpatient (REF) | payer BC, SELFPAY | LOC: HO.CARD 07:53 | PROVIDERS: PCP Physician Assistant; Visit Provider Physician Assistant | DX: R00.1 Bradycardia, unspecified (principal); R07.89 Other chest pain | CPT/HCPCS: 93005; 93306 ==

== ENCOUNTER → 2024-05-19 07:56 | Outpatient (BNV) | payer BC, SELFPAY | PROVIDERS: PCP Physician Assistant; Visit Provider Internal Medicine Cardiovascular Disease | DX: R94.31 Abnormal electrocardiogram [ECG] [EKG] (principal) | CPT/HCPCS: 93306; 93356 ==

== ENCOUNTER 2024-08-05 08:27 | Outpatient (AMB) | payer BC, OTHER, SELFPAY ==
--- NOTE | 2024-08-05 08:30 | A.OFFVIS_ITS ---
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 He reports a low heart rate detected by his watch, especially during sleep. He is generally asymptomatic. His primary concern stems from the sudden cardiac of his 27-year-old brother and his father?s history of congestive heart failure and bypass surgery. Of note, brother also had unhealthy lifestyle including substance abuse and hence that might be the reason for his event. The patient previously experienced chest discomfort lasting several weeks, which was initially considered acid reflux. He has since not experienced any significant chest pain during exertion. Previous echocardiography confirms possible left atrial enlargement consistent with his athletic lifestyle, where no significant pathological abnormalities were noted. Exercise The patient engages in regular running, participating in events such as 10K races once or twice a year. He maintains a consistent exercise regimen, which explains his low resting heart rate as a result of his athletic condition. [facility] Medical History (Updated 05/28/24 @ 10:32 by Lio Price PA-C) Impingement of right shoulder Cervical radiculopathy at C5 Surgical History History of microdiscectomy Family History Mother Heart disease Hyperthyroidism Father Diabetes Coronary artery disease involving coronary bypass graft Brother Substance use disorder Heart disease Social History Housing: House Alcohol intake: current Alcohol intake frequency: holidays/special occasions only Alcohol type: beer Patient Tobacco Use Status: Former Tobacco user Tobacco use type: Cigarette e-Cigarette/Vaping Use: Never Used Second Hand Smoke Exposure: No Current occupational status: employed 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 , 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 Cognitive needs: No Hearing needs: No Vision needs: No Review of Systems Const Denies chills, Denies fatigue, Denies fever(s), Denies frequent falls, Denies weakness, Denies weight gain and Denies weight loss ENT Denies dizziness Card Denies chest pain, Denies leg edema, Denies lightheadedness, Denies palpitations, Denies dyspnea, Denies dyspnea on exertion and Denies orthopnea Resp Denies cough, Denies dyspnea and Denies dyspnea on exertion GI Denies bloating and Denies change in bowel habits Musc Denies muscle weakness, Denies numbness and Denies tingling Neuro Denies dizziness, Denies frequent falls, Denies numbness, Denies tingling and Denies weakness Endo Denies fatigue and Denies palpitations Physical Exam Vital Signs: Last Vital Signs Pulse 42 L 08/05/24 08:33 BP 120/62 08/05/24 08:33 BMI result Body Mass Index 27.7 Const General: comfortable and no acute distress Orientation/consciousness: patient oriented x3 HEENT Other: Unremarkable Head: Yes normal to inspection Neck Neck: Yes normal visual inspection Chest Chest palpation & inspection: normal inspection of the chest Resp Auscultation: clear to auscultation bilaterally Cardio Palpation: normal PMI Heart sounds: S1 normal heart sound present, S2 normal heart sound present, no gallops, no murmurs and no rubs GI Palpation (GI): Soft to palpation Back/Spine/Pelvis Other: unremarkable Skin General skin exam: no rashes or lesions noted Neuro General: patient oriented x3 Extrem General: Yes normal to inspection Psych Mental Status: mental status grossly normal Office Procedures EKG Details: EKG with sinus bradycardia at 42/Min; sinus arrhythmias; no significant ST-T changes; [place] [address]-[id number], Complete Assessment & Plan Assessment & Plan (1) Bradycardia: Code(s): R00.1 - Bradycardia, unspecified Category: Medical (2) Family history of heart disease: Code(s): Z82.49 - Family history of ischemic heart disease and other diseases of the circulatory system Category: Medical (3) Chest discomfort: Code(s): R07.89 - Other chest pain Category: Medical Plan Given the bradycardia and family history of heart disease, further evaluation is necessary. The low heart rate is likely due to the patient's athletic condition, yet due to familial risk, a Cardiac CT scan is advised to assess for coronary blockages. The echocardiogram findings show normal function, with mild chamber enlargement associated with athletic adaptation. Consent for additional testing has been obtained, ensuring thorough evaluation while the patient continues beneficial regular exercise. Discussion Notes I explained to the patient the rationale for additional diagnostic testing, specifically a Cardiac CT scan, due to his bradycardia, history of chest discomfort and substantial family history of heart disease. We discussed the benefits of evaluating possible coronary artery disease, given his father's recent cardiac surgery, contrasted with the risk of procedure. The patient was informed about the normal echocardiogram findings that align with his athletic activity, reassuring him that the mild chamber enlargement is typical in such cases. No immediate interventions were deemed necessary except for continued exercise, which supports his cardiovascular health. Consent for the planned cardiac testing was obtained, and the patient was agreeable to the recommendations given his concerns. Patient was informed and verbally consented to the use of an ambient scribe for clinic note documentation during this visit. Orders: Orders CT Cardiac Coronary Angio Today I25.10 - Atherosclerotic heart disease of [place] coronary artery without angina pectoris, R07.89 - Other chest pain Basic Metabolic Panel Today R00.1 - Bradycardia, unspecified, R07.89 - Other chest pain Patient Instructions: - Continue with regular exercise, such as running, as it supports heart health. - Monitor heart rate as necessary, and report any new symptoms to the physician. - Undergo the scheduled Cardiac CT scan as arranged. - Follow up with the results of the scan for further assessment. - Maintain a healthy lifestyle and diet to support heart health. - Seek medical attention if experiencing significant chest pain or discomfort. - Stay informed about family health history and discuss any significant changes with your healthcare provider. Coding Level of Care Code New Pt Level 4 (48635) Complex EM visit Add On G2211 Diagnoses Bradycardia R00.1 Family history of heart disease Z82.49 Chest discomfort R07.89 CPT Codes EKG - CPT: 31684-[id number], Complete ([id number])
[2024-08-05 08:33] VITALS: BP 120/62; PULSE 42; BMI 27.7
== END 2024-08-05 09:02 | disposition home or self-care (01) ==
PROVIDERS: PCP Physician Assistant; Visit Provider Internal Medicine
DX: R00.1 Bradycardia, unspecified (principal); Z82.49 Family history of ischemic heart disease and other diseases of the circulatory system; R07.89 Other chest pain
CPT/HCPCS: 93010; 99204

== ENCOUNTER → 2024-08-05 08:27 | Outpatient (BNVA) | payer BC, SELFPAY | PROVIDERS: PCP Physician Assistant; Visit Provider Internal Medicine | DX: R00.1 Bradycardia, unspecified (principal); R07.89 Other chest pain; Z82.49 Family history of ischemic heart disease and other diseases of the circulatory system | CPT/HCPCS: 93005 ==

== ENCOUNTER 2024-11-10 11:41 | Outpatient (REF) | payer OTHER, SELFPAY ==
--- OUTSIDE RECORDS SUMMARY | 2024-11-10 12:28 | XMS_ITS | Clinical Summary ---
Author Organization [facility] Address [address] [place] [id number] Phone Care Team Providers Care Mail Carrier Technician Name Role Phone Lio Price Primary Care Provider + Allergies No known active allergies Medications atorvastatin (LIPITOR) 40 MG tablet 3 Active clobetasol (TEMOVATE) 0.05 % cream Apply 1 Application topically 2 (two) times a day. 45 g 4 Active Active Problems No known active problems Immunizations Immunization Administration Dates Next Due DTP 12/09/1985, 3,05/26/1981,1980,02/03/1981 Influenza Quadrivalent Prese rvative Free IM 02/22/2023,04/04/2022,03/01/2021,2019 MMR 10/07/1993,02/16/1982 Tdap 02/05/2020 Social History Tobacco Use Types Packs/Day Years Used Date Smoking Tobacco: Never Smokeless Tobacco: Never Tobacco Cessation:Counseling Given: Not Answered Education Answer Date Recorded Are you interested in more education? Not on christy e 12/12/2022 Are you concerned about learning? Not on file 12/12/2022 No 12/12/2022 No 12/12/2022 Digital Access Answer Date Recorded No 12/12/2022 No 12/12/2022 Reliable internet access at home? Not on file 12/12/2022 Device with a working camera? Not on file Sex and Gender Information Value Date Recorded Sex Assigned at Not on file Legal Sex Male 9:21 PM EDT Gender Identity Not on file Sexual Orientation Not on file Last Filed Vital Signs Vital Sign Reading Time Taken Comments Blood Pressure 100/72 08/28/2023 9:28 AM EDT Pulse 40 08/28/2023 9:28 AM EDT Temperature 36.8 C (98.2 F) 08/28/2023 9:28 AM EDT Respiratory Rate 18 08/28/2023 9:28 AM EDT Oxygen Saturation 99% 08/28/2023 9:28 AM EDT Inhaled Oxygen Concentration - - Weight 83.9 kg (185 lb) 08/28/2023 9:28 AM EDT Height - - Body Mass Index - - Plan of Treatment Health Maintenance Due Date Last Done Comments DEPRESSION SCREENING 1992 HEPATITIS C SCREENING 1998 HIV ONE-TIME SCREENING (18-6 5 YEARS) 1998 COVID-19 VACCINE (2023-2 5 season) 2023 03/08/2021, 07/16/2020 LIPID PANEL 11/13/2028 11/14/2023, 04/04/2023 Adult Td,Tdap Booster 02/04/2030 02/05/2020 SMOKING STATUS SCREENING (On ce After 26 Yrs) Completed 08/28/2023 HEPATITIS A VACCINES Aged Out No long er eligible based on patient's age to complete this topic HIB VACCINES Aged Out No longer eligi ble based on patient's age to complete this topic MENINGOCOCCAL VACCINES (ACWY) Aged Out No longer eligible based on patient's age to complete this topic MENINGOCOCCAL VACCINES (B) Aged Out N o longer eligible based on patient's age to complete this topic PNEUMOCOCCAL VACCINES (0-49 years) Aged Out No longer eligible b ased on patient's age to complete this topic Medical Devices Not on file Procedures Procedure Name Priority Date/Time Associated Diagnosis Comments LIPID PANEL Routine 11/14/2023 9:39 AM EDT Mixed hyperlipidemia from Last 3 Months or Most Recently Relevant to Health Maintenance Results * (ABNORMAL) Lipid panel (11/14/2023 9:39 AM EDT) HDL 54 mg/dL [facility] Comment: Interpretation <40 mg/dL: Low HDL cholesterol (major risk factor for CHD) Greater than or equal to 60 mg/dL: High HDL cholesterol ( negative risk factor for CHD) HDL - cholesterol is affected by a number of factors, e.g. smoking, excerise, hormones, sex and age. CHOLESTEROL 214 0 - 240 mg/dL [facility] TRIGLYCERIDES 102 30 - 160 mg/dL [facility] LDL 140(H) 50 - 129 mg/dL [facility] Comment: LDL levels in terms of risk for coronary heart disease: <100 mg/dL: Optimal 100-129 mg/dL: Near or above optimal 130-159 mg/dL: Borderline high 160-189 mg/dL: High >190 mg/dL: Very High CARDIAC RISK RATIO 4.0 3.4 - 5.0 C [facility] Blood 11/14/2023 9:39 AM EDT 11/14/2023 9:42 AM EDT us Lio BARRERA LAB BLOOD ORDERABLES Fin al Result Performing Organization Address City/State/[facility] Co de Phone Number [facility] [address] [place], [place] [phone] from Last 3 Months or Most Recently Relevant to Health Maintenance [facility] [place] [address] PCP [employer] OUT OF STATE [facility] NSPG PCP S[employer] [place] [place] OUT OF STATE [facility]PO [facility] PCP [employer] [address] [place] [address] PPO [facility] [place] [address] [address] [address] NON NSPG PCP S[employer] [place] OUT STATE PPO [facility] [employer] NON NSPG PCP S[employer] [place] [address] [place] [address] PPO [facility] [place] [employer] NON NSPG PCP [employer] [place] OUT OF STATE PPO Care Teams Mail Carrier Technician Relationship Specialty Start Date End Date Lio Price PA [address] [place] [address] PCP - General Physician Fiscal Specialist 12/12/22 Additional Source Comments The information contained in this document represents components of the legal health record. It is not the complete legal health record.[facility]
[2024-11-10 12:34] LABS: Anion Gap 11 (12-20); Blood Urea Nitrogen 15 mg/dL (9-16); Calcium 9.4 mg/dL (8.4-10.2); Carbon Dioxide 29 mmol/L (22-29); Chloride 105 mmol/L (96-108); Estimated Glomerular Filt Rate > 60; Potassium 4.6 mmol/L (3.3-5.1); Sodium 140 mmol/L (135-145)
== END 2024-11-10 11:42 | disposition home or self-care (01) ==
LOC: HO.LAB 11:41
PROVIDERS: PCP Physician Assistant; Visit Provider Internal Medicine
DX: R00.1 Bradycardia, unspecified (principal); R07.89 Other chest pain
CPT/HCPCS: 36415; 80048

== ENCOUNTER 2024-11-18 14:47 | Outpatient (AMB) | payer OTHER, SELFPAY ==
--- NOTE | 2024-11-18 15:01 | MHC.OFFVIS ---
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 Patient with a history of hyperlipidemia and strong family history of coronary artery disease. Patient states that his younger brother of starting cardiac but also mentions that he had other issues such as substance abuse. Patient was previously seen in the office for chest discomfort and bradycardia. Today, patient reports feeling well overall and denies any symptoms of chest pain since March. Patient is also denying any other symptoms including exertional shortness breath, palpitations, dizziness, orthopnea, PND, leg edema, presyncope or syncope. [facility] Medical History Impingement of right shoulder Cervical radiculopathy at C5 Surgical History History of microdiscectomy Family History Mother Heart disease Hyperthyroidism Father Diabetes Coronary artery disease involving coronary bypass graft Brother Substance use disorder Heart disease Social History Housing: House Alcohol intake: current Alcohol intake frequency: holidays/special occasions only Alcohol type: beer Patient Tobacco Use Status: Former Tobacco user Tobacco use type: Cigarette e-Cigarette/Vaping Use: Never Used Second Hand Smoke Exposure: No Current occupational status: employed 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 , 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 Cognitive needs: No Hearing needs: No Vision needs: No Review of Systems Const Denies daytime sleepiness, Denies difficulty sleeping, Denies snoring, Denies stops breathing during sleep and Denies weakness Card Denies chest pain, Denies rapid heart rate, Denies irregular heart rhythm, Denies claudication, Denies leg edema, Denies lightheadedness, Denies palpitations, Denies dyspnea, Denies dyspnea on exertion, Denies orthopnea, Denies paroxysmal nocturnal dyspnea and Denies slow heart rate Resp Denies cough, Denies dyspnea, Denies dyspnea on exertion and Denies snoring GI Reports no additional complaints, Denies hematochezia, Denies change in stool character and Denies dyspepsia Musc Denies abnormal gait, Denies muscle weakness and Denies numbness Neuro Denies abnormal gait, Denies numbness and Denies weakness Endo Denies palpitations Physical Exam Vital Signs: Last Vital Signs Pulse 55 11/18/24 15:02 BP 116/72 11/18/24 15:02 BMI result Body Mass Index 28.2 Const General: cooperative, healthy appearing, comfortable and no acute distress Orientation/consciousness: patient oriented x3 HEENT Head: Yes normal to inspection Neck Neck: Yes normal visual inspection, Yes trachea midline and Yes supple Chest Chest palpation & inspection: normal inspection of the chest Resp Effort & Inspection: normal respiratory effort Auscultation: clear to auscultation bilaterally, no crackles, no rales, no rhonchi and no wheezes Cardio Jugular venous distension: no JVD Palpation: normal PMI Rate: regular rate Rhythm: regular rhythm Heart sounds: S1 normal heart sound present, S2 normal heart sound present, no click, no gallops, no murmurs and no rubs Peripheral pulses: Peripheral pulses 2+ throughout GI Inspection: Yes normal to inspection Palpation (GI): Soft to palpation Auscultation: normal bowel sounds Skin General skin exam: no rashes or lesions noted Neuro General: patient oriented x3 Extrem General: Yes normal to inspection, No no pedal edema and No calf tenderness Psych Appearance: grossly normal Mental Status: mental status grossly normal Speech and movement: Normal speech and movement present Assessment & Plan Assessment & Plan (1) Chest discomfort: Code(s): R07.89 - Other chest pain Category: Medical (2) Bradycardia: Code(s): R00.1 - Bradycardia, unspecified Category: Medical (3) HLD (hyperlipidemia): Code(s): E78.5 - Hyperlipidemia, unspecified Category: Medical Qualifiers: Hyperlipidemia type: mixed hyperlipidemia Qualified Code(s): E78.2 - Mixed hyperlipidemia (4) Family history of heart disease: Code(s): Z82.49 - Family history of ischemic heart disease and other diseases of the circulatory system Category: Medical Plan 05/19/2024- patient's echo showed normal LV systolic function with the ejection fraction between 60-65% with no wall motion abnormalities. 11/12/2024-coronary CTA at [facility] showed minimal coronary artery disease in the vessels. Given above findings and resolution of his symptoms, no further testing indicated at this time. Most recent LDL at 96. Continue statin therapy with an LDL goal closer to 70. Blood pressure within normal limits. Advised heart healthy diet, regular exercise, med compliance, and management of vascular risk factors. Patient will follow up on an as-needed basis. In the interim, patient will call the office with any concerns or change in symptoms. This note was generated using voice recognition software. While every effort has been made to ensure accuracy and proper contact officer, there may be occasional errors that could affect the content or meaning of the described symptoms. Coding Level of Care Code Est Pt Level 4 (57165) Complex EM visit Add On G2211 Diagnoses Chest discomfort R07.89 Bradycardia R00.1 Mixed hyperlipidemia E78.2 Hyperlipidemia type: mixed hyperlipidemia Family history of heart disease Z82.49 Time Spent (min) 32 Comment Time spent in reviewing the chart, test results, assessment, counseling and documentation.
[2024-11-18 15:02] VITALS: BP 116/72; PULSE 55; BMI 28.2
--- OUTSIDE RECORDS SUMMARY | 2024-11-18 15:39 | XMS_ITS | Clinical Summary ---
Author Organization [facility] Address [address] [place] [id number] Phone Care Team Providers Care Food Service Counter Clerk Name Role Phone Lio Price Primary Care [...] (11/14/2023 9:39 AM EDT) HDL 54 mg/dL [facility] Comment: Interpretation <40 mg/dL: Low HDL cholesterol (major risk factor for CHD) Greater than or equal to 60 mg/dL: High HDL cholesterol ( negative risk factor for CHD) HDL - cholesterol is affected by a number of factors, e.g. smoking, excerise, hormones, sex and age. CHOLESTEROL 214 0 - 240 mg/dL [facility] TRIGLYCERIDES 102 30 - 160 mg/dL [facility] LDL 140(H) 50 - 129 mg/dL [facility] Comment: LDL levels in terms of risk for coronary heart disease: <100 mg/dL: Optimal 100-129 mg/dL: Near or above optimal 130-159 mg/dL: Borderline high 160-189 mg/dL: High >190 mg/dL: Very High CARDIAC RISK RATIO 4.0 3.4 - 5.0 C [facility] Blood 11/14/2023 9:39 AM EDT 11/14/2023 9:42 AM EDT us Lio BARRERA LAB BLOOD ORDERABLES Fin al Result Performing Organization Address City/State/[facility] Co de Phone Number [facility] [address] [place], [place] [phone] from Last 3 Months or Most Recently Relevant to Health Maintenance [facility] [place] [address] PCP S[employer] [place] OUT OF STATE [facility] NSPG PCP S[employer] [place] [place] OUT OF STATE [facility] PCP S[facility] [place] [address] [address] PPO [facility] [address] [address] NON NSPG PCP S[employer] [place]UE [place] OUT STATE PPO [facility] [employer] NON NSPG PCP S[employer] [facility] [address] [facility]PO [facility] [place] [employer] NON NSPG PCP S[employer] [place] OUT OF STATE PPO Care Teams Food Service Counter Clerk Relationship Specialty Start Date End Date Lio Price PA [address] [place] [address] PCP - General Physician Morning Show Producer 12/12/22 Additional Source Comments The information contained in this document represents components of the legal health record. It is not the complete legal health record.[facility]
== END 2024-11-18 16:05 | disposition home or self-care (01) ==
LOC: HO.HCS 14:48
PROVIDERS: PCP Physician Assistant
DX: R07.89 Other chest pain (principal); R00.1 Bradycardia, unspecified; E78.2 Mixed hyperlipidemia; Z82.49 Family history of ischemic heart disease and other diseases of the circulatory system
CPT/HCPCS: 99214; G2211